=== PATIENT | female | born 1990 | race African-American/Black ===

== ENCOUNTER 2017-12-06 12:28 | Emergency (ER) | payer SELFPAY ==
[2017-12-06 12:36] VITALS: BP 122/76
[2017-12-06] MEDS ORDERED: LIDOCAINE 5% (700 MG) TRANSDERMAL ADH..PATCH TP ONE (13:46)
[2017-12-06] MEDS ORDERED: IBUPROFEN 600 MG TABLET PO ONE (13:47)
[2017-12-06] MEDS ORDERED: ACETAMINOPHEN 325 MG TABLET PO ONE (13:47)
--- NOTE | 2017-12-06 13:48 | ER Document Report ---
ED Headache - General Chief Complaint: Headache >24 hrs old Stated Complaint: HEADACHE Time Seen by Provider: 12/06/17 13:46 TRAVEL OUTSIDE OF THE [place] IN LAST 30 DAYS: No - HPI Patient complains to provider of: Headache Notes: Patient coming in for evaluation of a headache frontal also having neck pain. Patient is a mother to her 2 children in the room. Patient also states having diarrhea which her [id number] was also experiencing. Patient denies any trauma denies any fevers chills nausea vomiting. Patient states she will start having pain in front of her head and then she will start having pain in the back of her neck worse with movement. Patient states continues to increase tension in the back of her neck denies taking any medications for her pain except for Advil a few days prior. - Related Data Allergies/Adverse Reactions: No Known Allergies Allergy (Verified 12/06/17 13:39) Past Medical History - Social History Smoking Status: Current Every Day Smoker Frequency of alcohol use: None Drug Abuse: None Family History: Reviewed & Not Pertinent Patient has suicidal ideation: No Patient has homicidal ideation: No Neurological Medical History: Reports: Hx Migraine Renal/ Medical History: Denies: Hx Peritoneal Dialysis Review of Systems - Review of Systems Constitutional: Other - Headache diarrhea EENT: No symptoms reported Cardiovascular: No symptoms reported Respiratory: No symptoms reported Gastrointestinal: No symptoms reported Genitourinary: No symptoms reported Female Genitourinary: No symptoms reported Musculoskeletal: No symptoms reported Skin: No symptoms reported Hematologic/Lymphatic: No symptoms reported Neurological/Psychological: No symptoms reported -: Yes All other systems reviewed and negative Physical Exam - Vital signs Vitals: Temp Pulse Resp BP Pulse Ox 97.7 F 69 14 122/76 100 12/06/17 12:31 12/06/17 12:31 12/06/17 12:31 12/06/17 12:31 12/06/17 12:31 Interpretation: Normal - General General appearance: Appears well, Alert - HEENT Head: Normocephalic, Atraumatic Eyes: Normal Pupils: PERRL Sinus: Normal Nasal: Normal Neck: Other - Paraspinal tenderness bilaterally no midline tenderness - Respiratory Respiratory status: No respiratory distress Chest status: Nontender Breath sounds: Normal Chest palpation: Normal - Cardiovascular Rhythm: Regular Heart sounds: Normal auscultation Murmur: No - Abdominal Inspection: Normal Distension: No distension Bowel sounds: Normal Tenderness: Nontender Organomegaly: No organomegaly - Back Back: Normal, Nontender - Extremities General upper extremity: Normal inspection, Nontender, Normal color, Normal ROM , Normal temperature General lower extremity: Normal inspection, Nontender, Normal color, Normal ROM , Normal temperature, Normal weight bearing. No: Hilary's sign - Neurological Neuro grossly intact: Yes Cognition: Normal Orientation: AAOx4 Irving Coma Scale Eye Opening: Spontaneous Irving Coma Scale Verbal: Oriented Irving Coma Scale Motor: Obeys Commands Irving Coma Scale Total: 15 Speech: Normal Motor strength normal: LUE, RUE, LLE, RLE Sensory: Normal - Psychological Associated symptoms: Normal affect, Normal mood - Skin Skin Temperature: Warm Skin Moisture: Dry Skin Color: Normal Course - Re-evaluation Re-evalutation: 12/06/17 21:04 The patient presents with headache without signs of NATIONAL SALES REPRESENTATIVE bleed, stroke, infection , or other serious etiology. The patient is neurologically intact. Given the extremely low risk of these diagnoses further testing and evaluation for these possibilities does not appear to be indicated at this time. The patient has been instructed to return if the symptoms worsen or change in any way.. Symptoms are consistent with tension headache recommend Tylenol Motrin along with lidocaine patches. Patient states understanding. Patient is exposed to her young son who also has diarrhea recommend however noted changes to any medications at this time - Vital Signs Vital signs: Temp Pulse Resp BP Pulse Ox 97.7 F 69 14 122/76 100 12/06/17 12:31 12/06/17 12:31 12/06/17 12:31 12/06/17 12:31 12/06/17 12:31 Discharge - Discharge Clinical Impression: Tension headache Diarrhea Qualifiers: Diarrhea type: unspecified type Qualified Code(s): R19.7 - Diarrhea, unspecified Condition: Good Disposition: HOME, SELF-CARE Instructions: Diarrhea, Nonspecific ([facility]), Tension Headache ([facility]) Additional Instructions: Your evaluation today and HPI is consistent with a tension headache. Treatment for tension headache as an anti-inflammatory medication I would recommend taking the Motrin Tylenol combination as prescribed. He may also try the lidocaine patches that are available [id number]. Please be sure drinking plenty water to stay well-hydrated. Return to ER symptoms worsen. Prescriptions: Ibuprofen [Motrin 600 mg Tablet] 600 mg PO Q8HP PRN #21 tablet PRN Reason: Forms: Return to Work
== END 2017-12-06 14:01 | disposition home or self-care (01) ==
LOC: ER 12:28
DX: G44.209 Tension-type headache, unspecified, not intractable (principal); R19.7 Diarrhea, unspecified; F17.200 Nicotine dependence, unspecified, uncomplicated
CPT/HCPCS: 99283

== ENCOUNTER 2017-12-25 02:04 | Emergency (ER) | payer SELFPAY ==
--- NOTE | 2017-12-25 07:58 | ER Document Report ---
ED ENT - General Chief Complaint: Ear Pain Stated Complaint: EAR/JAW PAIN Time Seen by Provider: 12/25/17 07:48 Mode of Arrival: Ambulatory Information source: Patient Notes: Patient is a 27-year-old female comes emergency room with a 5 day onset of bilateral ear pain and jaw pain. Patient states it started in her right ear first and then moved to the left with the left being worse now. Also hurts when she opens up her mouth. She denies any history of TMJ. She denies any other medical problems. She did denies smoking. Patient was here with her son who we saw as well for diaper rash. She also has some sinus congestion runny nose. TRAVEL OUTSIDE OF THE [place] IN LAST 30 DAYS: No - HPI Patient complains to provider of: Ear problem Onset: Last week Onset/Duration: Persistent, Worse Quality of pain: Achy, Sharp Severity: Moderate Pain Level: 3 Context: Recent Illness. denies: Injury, Travel Location of pain: Ears, Face, Jaw, Nose, Throat Associated symptoms: Congestion, Cough, Ear pain, Jaw pain, Runny nose, Sinus pain, Sinus drainage, Swollen glands, Other. denies: Face swelling, Fever, Neck pain Similar symptoms previously: Yes Recently seen / treated by doctor: No - Related Data Allergies/Adverse Reactions: No Known Allergies Allergy (Verified 12/25/17 02:07) Past Medical History - General Information source: Patient - Social History Smoking Status: Never Smoker Cigarette use (# per day): No Chew tobacco use (# tins/day): No Smoking Education Provided: No Frequency of alcohol use: Rare Drug Abuse: None Lives with: Family Family History: Reviewed & Not Pertinent Neurological Medical History: Reports: Hx Migraine Renal/ Medical History: Denies: Hx Peritoneal Dialysis Review of Systems - Review of Systems Constitutional: Malaise. denies: Fever EENT: Ear pain, Nose congestion, Nose discharge, Sinus pressure, Mouth pain Cardiovascular: No symptoms reported Respiratory: No symptoms reported Gastrointestinal: No symptoms reported Genitourinary: No symptoms reported Female Genitourinary: No symptoms reported Musculoskeletal: No symptoms reported Skin: No symptoms reported Hematologic/Lymphatic: No symptoms reported Neurological/Psychological: No symptoms reported -: Yes All other systems reviewed and negative Physical Exam - Vital signs Vitals: Temp Pulse BP Pulse Ox 98.2 F 79 130/86 H 99 12/25/17 03:08 12/25/17 03:08 12/25/17 03:08 12/25/17 03:08 Interpretation: Hypertensive - Notes Notes: Patient is a well-nourished well-developed 27-year-old female who is in mild discomfort appearing state. She just cannot get comfortable. She refuses to touch her ears because of the pain and discomfort. States that her right ear started first and then followed by the left and now the left is worse. She also complains of painful jaw up by the ears. He also has sinus congestion. - General General appearance: Alert - HEENT Head: Normocephalic, Atraumatic Eyes: Normal Conjunctiva: Normal Ears: Pinna tenderness, Tragus tenderness External canal: Erythema, Swollen, Other - Examination of patient's bilateral external canals show them both have moderate amount of erythema with the left being worse than the right. Patient has pain with palpation of the tragus as well as the auricle. The left ear has some moderate swelling although I can still visualize the TMs. The TMs are bulging with air-fluid levels noted. Patient also has noted tenderness at the TMJ area with opening and closing of her mouth. Although there is no crepitus felt on the motion. Tympanic membrane: Bulging. No: Perforation Sinus: Maxillary, Swelling, Tenderness Nasal: Purulent discharge, Swelling Mouth/Lips: Normal Mucous membranes: Moist Pharynx: Erythema, Post nasal drainage. No: Blood in hypopharynx, Exudate, Peritonsillar abscess, Retropharyngeal abscess, Tonsillar hypertrophy, Uvular edema, Potential airway comprom. Neck: Normal, Posterior cervical chain, Supple. No: Anterior cervical chain, Subcutaneous emphysema, Thyroid nodule, Thyromegally - Respiratory Respiratory status: No respiratory distress Chest status: Nontender Breath sounds: Normal Chest palpation: Normal - Cardiovascular Rhythm: Regular Heart sounds: Normal auscultation Murmur: No - Neurological Neuro grossly intact: Yes Cognition: Normal Orientation: AAOx4 Irving Coma Scale Eye Opening: Spontaneous [place] Coma Scale Verbal: Oriented Irving Coma Scale Motor: Obeys Commands [place] Coma Scale Total: 15 Speech: Normal Course - Vital Signs Vital signs: Temp Pulse Resp BP Pulse Ox 97.8 F 65 16 135/82 H 100 12/25/17 07:57 12/25/17 07:57 12/25/17 07:57 12/25/17 07:57 12/25/17 07:57 Discharge - Discharge Clinical Impression: Otitis externa Qualifiers: Otitis externa type: diffuse Chronicity: acute Laterality: bilateral Qualified Code(s): H60.313 - Diffuse otitis externa, bilateral Otitis media Qualifiers: Otitis media type: allergic Chronicity: acute Laterality: bilateral Recurrence : not specified as recurrent Qualified Code(s): H65.113 - Acute and subacute allergic otitis media (mucoid) (sanguinous) (serous), bilateral Condition: Stable Disposition: HOME, SELF-CARE Instructions: Otitis Externa ([facility]), Otitis Media ([facility]), Sinusitis ([facility]) Additional Instructions: Home and use the drops as directed. Try to keep them as dry as possible. You might consider getting some swimming earplugs to put in your ears when he take a shower. Take the medications as prescribed. Return to ER if you have any concerns or problems. Prescriptions: Cyclobenzaprine HCl [Flexeril 10 mg Tablet] 10 mg PO TIDP PRN #10 tab PRN Reason: Neomy Sulf/Polymyx B Sulf/Hc [Cortisporin Otic Susp 10 ml] 4 drop OT QID #1 bottle Pseudoephedrine HCl [Sudafed 12 Hour] 120 mg PO BID #20 tablet.er
[2017-12-25 08:12] VITALS: BP 135/82
== END 2017-12-25 08:11 | disposition home or self-care (01) ==
LOC: ER 02:04
DX: H60.313 Diffuse otitis externa, bilateral (principal); H65.113 Acute and subacute allergic otitis media (mucoid) (sanguinous) (serous), bilateral; R68.84 Jaw pain
CPT/HCPCS: 99282

== ENCOUNTER 2019-04-04 00:06 | Outpatient (CLI) | payer MEDICAID ==
[2019-04-04 00:41] LABS: APPEARANCE,URINE CLEAR; BILIRUBIN,URINE NEGATIVE (NEGATIVE); COLOR,URINE YELLOW; GLUCOSE, URINE NEGATIVE (NEGATIVE); KETONES,URINE NEGATIVE (NEGATIVE); LEUKOCYTE ESTERASE,URINE NEGATIVE (NEGATIVE); NITRITE,URINE NEGATIVE (NEGATIVE); PROTEIN,URINE NEGATIVE (NEGATIVE); URINE SPECIFIC GRAVITY 1.023
[2019-04-04 00:59] LABS: URINE AMPHETAMINES SCREEN NEGATIVE; URINE BARBITURATES SCREEN NEGATIVE; URINE BENZODIAZEPINES SCREEN NEGATIVE; URINE COCAINE SCREEN NEGATIVE; URINE MARIJUANA (THC) SCREEN NEGATIVE; URINE METHADONE SCREEN NEGATIVE; URINE PHENCYCLIDINE SCREEN NEGATIVE
[2019-04-04] MEDS ORDERED: ACETAMINOPHEN 325 MG TABLET ONE (01:31)
[2019-04-04] MEDS ORDERED: ACETAMINOPHEN 325 MG TABLET PO ONE (02:00)
--- NOTE | 2019-04-04 02:07 | Non Stress Test Report ---
Non Stress Test Datetime Report Generated by CPN: 04/04/2019 02:07 DEMOGRAPHIC EGA NST: 40.4 INDICATION Indication for Study (NST) Other: gestational age >32 weeks VITAL SIGNS Temperature - NST: 98.7 Pulse - NST: 64 RESP - NST: 16 NBPSYS NST: 137 NBPDIA NST: 99 MONITORING Monitor Explained: Monitor Explained; Test Explained; Patient Verbalized Understanding Time on Monitor: 04/04/2019 00:43 Time off Monitor: 04/04/2019 01:17 NST Duration: 34 NST INTERVENTIONS NST Interventions: None Physician Notified NST: Dr. Roche BABY A: [id number] BABY A Movement : Present Contraction Frequency : irregular with irritability FHR Baseline : 135 Accelerations : 15X15 Decelerations : None Variability : Moderate 6-25bpm NST Review: Meets Criteria for Reactive NST NST Review and Verified By : Minesh Cohen RN NST Results: Reactive NST REPORT Report Trigger: Send Report
== END 2019-04-04 01:56 | disposition home or self-care (01) ==
LOC: LC 00:06
PROVIDERS: ATTEND Obstetrics & Gynecology
PROC: 4A1HXCZ Monitoring of Products of Conception, Cardiac Rate, External Approach (ICD-10-PCS; principal; 2019-04-04)
DX: O47.1 False labor at or after 37 completed weeks of gestation (principal); O99.283 Endocrine, nutritional and metabolic diseases complicating pregnancy, third trimester; E86.0 Dehydration; O48.0 Post-term pregnancy; Z3A.40 40 weeks gestation of pregnancy
CPT/HCPCS: 59025; 81005; 80307; J3490

== ENCOUNTER 2019-04-08 06:46 | Inpatient (IN) | payer MEDICAID ==
[2019-04-08] MEDS ORDERED: OXYTOCIN/NORMAL SALINE 20 UNIT/1,000 ML RTUINJ IV PRN ×2 (07:12→17:36)
[2019-04-08 07:45] LABS: ABSOLUTE LYMPHOCYTES (AUTO) 1.3 10^3/uL (0.5-4.7); ABSOLUTE MONOCYTES (AUTO) 0.4 10^3/uL (0.1-1.4); ABSOLUTE NEUT (AUTO) 3.6 10^3/uL (1.7-8.2); BASOPHILS % (AUTO) 0.4 % (0-2); EOSINOPHILS % (AUTO) 0.5 % (0-6); HEMATOCRIT 29.4 % (36.0-47.0); HEMOGLOBIN 9.8 g/dL (12.0-15.5); LYMPHOCYTES % (AUTO) 24.2 % (13-45); MEAN CORPUSCULAR HEMOGLOBIN 26.7 pg (27.0-33.4); MEAN CORPUSCULAR HGB CONC 33.3 g/dL (32.0-36.0); MEAN CORPUSCULAR VOLUME 80 fl (80-97); MONOCYTES % (AUTO) 7.6 % (3-13); PLATELET COUNT 168 10^3/uL (150-450); RED BLOOD COUNT 3.67 10^6/uL (3.72-5.28); RED CELL DISTRIBUTION WIDTH 18.3 % (11.5-14.0); SEGMENTED NEUTROPHILS % (AUTO) 67.3 % (42-78); TOTAL CELLS COUNTED % (AUTO) 100 %; WHITE BLOOD COUNT 5.4 10^3/uL (4.0-10.5)
[2019-04-08] MEDS ORDERED: RINGERS SOLUTION,LACTATED 1,000 ML IV ONE (08:00)
[2019-04-08] MEDS ORDERED: OXYTOCIN/NORMAL SALINE 20 UNIT/1,000 ML RTUINJ ONE ×2 (08:06→17:36)
[2019-04-08] MEDS ORDERED: LIDOCAINE 1% INJ-PF (10 MG/ML) 30 ML SDV ONE (08:06)
[2019-04-08] MEDS ORDERED: OXYTOCIN 10 UNIT/ML VIAL ONE (08:06)
[2019-04-08] MEDS ORDERED: MISOPROSTOL 0.2 MG TABLET ONE (08:06)
[2019-04-08] MEDS: RINGERS SOLUTION,LACTATED 1,000 ML IV PRN ×2 (08:17→15:15)
[2019-04-08 08:48] LABS: APPEARANCE,URINE CLEAR; BILIRUBIN,URINE NEGATIVE (NEGATIVE); COLOR,URINE YELLOW; GLUCOSE, URINE NEGATIVE (NEGATIVE); KETONES,URINE NEGATIVE (NEGATIVE); LEUKOCYTE ESTERASE,URINE NEGATIVE (NEGATIVE); NITRITE,URINE NEGATIVE (NEGATIVE); PROTEIN,URINE NEGATIVE (NEGATIVE); URINE SPECIFIC GRAVITY 1.013; UROBILINOGEN,URINE NEGATIVE mg/dL (<2.0)
--- NOTE | 2019-04-08 08:59 | Admission Physical ---
Datetime Report Generated by CPN: 04/08/2019 08:58 CURRENT ADMISSION Chief Complaint: Scheduled Induction of Labor Indication for Induction: Post Dates Admit Impression : No Active Labor Admit Plan: Initiate Labor Induction Protocol Admit Plan- Other: Hx HSV Hx Von Willibrands Dz Anemia Abn pap ASCUS + HR HPV Gap in PNC ALLERGIES Medication Allergies: No Medication Allergies: aspirin/MO/bleeding (04/04/2019) Latex: No Latex Allergies Food Allergies: n/a Environmental Allergies: n/a OBSTETRICAL HISTORY EDC: 03/31/2019 00:00 : 4 Para: 3 Term: 3 : 0 SAB: 0 IAB: 0 Ectopic: 0 Livin Cesareans: 0 VBACs: 0 Multiple Births: 0 Gestational Diabetes: No Rh Sensitization: No Incompetent Cervix: No RAMESH: No Infertility: No ART Treatment: No Uterine Anomaly: No IUGR: No Hx Previous C/S: No Macrosomia: No Hx Loss/Stillborn: No PIH: No Hx : No Placenta Previa/Abruption: No Depression/PP Depression: Yes PTL/PROM: No Post Hemorrhage: No Current Procedures: Ultrasound; NST Obstetrical History Comments: g-2012, 37 weeks, , male, 9 hours, lb 4oz, no complications g2-2015, 42 weeks, ,male, 23 hours, 5lb 9oz, no complications g3-2016, 40 weeks, , 6hr, male, 6lb 3oz, no complications g4-current SEE RECORDS Alcohol: No Marijuana : No Cocaine: No Other Illicit Drugs: No Cigarettes: Former Smoker. [id number] MEDICAL HISTORY Diabetes: No Blood Transfusion: No Pulmonary Disease (Asthma, TB): No Breast Disease: No Hypertension: No Director Of Tax Services Surgery: No Heart Disease: No Hosp/Surgery: Yes Autoimmune Disorder: No Anesthetic Complications: No Kidney Disease: No Abnormal Pap Smear: Yes Neuro/Epilepsy: No Psychiatric Disorders: No Other Medical Diseases: Yes Hepatitis/Liver Disease: No Significant Family History: No Varicosities/Phlebitis: No Trauma/Violence : No Thyroid Dysfunction: No Medical History Comments: HSV, Von Willebrands dx as a child, childbirth x 3, anemia, abn pap, HPV INFECTIOUS HISTORY Gonorrhea: No Genital Herpes: Yes Chlamydia: No Tuberculosis: No Syphilis: No Hepatitis: No HIV/AIDS Exposure: No Rash or Viral Illness: No HPV: Yes PHYSICAL EXAM General: Normal HEENT: Deferred Neurologic: Normal Thyroid: Deferred Heart: Normal Lungs: Normal Breast: Deferred Back: Deferred Abdomen: Normal Genitourinary Exam: Normal Extremities: Normal DTRs: Deferred Pelvic Type: Adequate Physical Exam Comments: no signs sx of HSV Vital Signs: Reviewed VAGINAL EXAM Dilatation: 2 Effacement: 50 Station: -3 MEMBRANES Membranes: Intact FETUS A EGA: 41.1 Monitoring: External US FHR- Baseline: 130 Variability: Moderate 6-25bpm Accelerations: 15X15 Decelerations: None FHR Category: Category I Presentation: Vertex Admit Comment: Admit for IOL GBS neg Plan per Dr. [place], Otto cath placed, pitocin started at 2mu PLANS FOR LABOR AND DELIVERY Labor and Delivery: None Pain Management: Natural Feeding Preference: Breast Benefit of Breast Feed Discussed: Yes Circumcision: N/A INFORMED CONSENT Assignment: Elizabeth Colorado MD Signature: with User ID: [email or web address] : with User ID: [email or web address]
[2019-04-08 09:18] LABS: URINE AMPHETAMINES SCREEN NEGATIVE; URINE BARBITURATES SCREEN NEGATIVE; URINE BENZODIAZEPINES SCREEN NEGATIVE; URINE COCAINE SCREEN NEGATIVE; URINE MARIJUANA (THC) SCREEN NEGATIVE; URINE METHADONE SCREEN NEGATIVE; URINE PHENCYCLIDINE SCREEN NEGATIVE
[2019-04-08 11:38] LABS: HEMATOCRIT 29.7 % (36.0-47.0); HEMOGLOBIN 9.9 g/dL (12.0-15.5); MEAN CORPUSCULAR HEMOGLOBIN 26.6 pg (27.0-33.4); MEAN CORPUSCULAR HGB CONC 33.3 g/dL (32.0-36.0); MEAN CORPUSCULAR VOLUME 80 fl (80-97); PLATELET COUNT 173 10^3/uL (150-450); RED BLOOD COUNT 3.72 10^6/uL (3.72-5.28); RED CELL DISTRIBUTION WIDTH 18.9 % (11.5-14.0)
[2019-04-08 11:40] LABS: UR PRO/CREAT RATIO RESULT 0.1 mg/mg (0.0-0.2); URINE CREATININE 100.1 mg/dL (16-327); URINE PROTEIN 8.8 mg/dL (<12)
[2019-04-08 11:55] LABS: ALBUMIN 3.2 g/dL (3.5-5.0); ALKALINE PHOSPHATASE 145 U/L (38-126); ANION GAP 6 (5-19); ASPARTATE AMINO TRANSFERASE 15 U/L (14-36); BILIRUBIN,DIRECT 0.1 mg/dL (0.0-0.4); BILIRUBIN,TOTAL 0.4 mg/dL (0.2-1.3); BLOOD UREA NITROGEN 5 mg/dL (7-20); CALCIUM 8.4 mg/dL (8.4-10.2); CARBON DIOXIDE 20 mmol/L (22-30); CHLORIDE 110 mmol/L (98-107); GLUCOSE 79 mg/dL (75-110); POTASSIUM 3.9 mmol/L (3.6-5.0); TOTAL PROTEIN 6.5 g/dL (6.3-8.2); URIC ACID 3.7 mg/dL (2.5-6.2)
[2019-04-08] MEDS ORDERED: DIPHENHYDRAMINE HCL 25 MG CAPSULE PO PRN (17:36)
[2019-04-08] MEDS ORDERED: DIPH/PERTUSS(ACELL)/TETANUS VAC/PF 0.5 ML SYR (>=10YO) IM PRN (17:36)
[2019-04-08] MEDS ORDERED: DIBUCAINE 1% OINTMENT 28 GM TP PRN (17:36)
[2019-04-08] MEDS ORDERED: PROMETHAZINE HCL 25 MG TABLET PO PRN (17:36)
[2019-04-08] MEDS ORDERED: PROMETHAZINE HCL INJ 25 MG/1 ML VIAL IV PRN (17:36)
[2019-04-08] MEDS ORDERED: ACETAMINOPHEN WITH CODEINE #3 TABLET PO PRN (17:36)
[2019-04-08] MEDS ORDERED: BENZOCAINE/MENTHOL AEROSOL SPRAY 56 ML TOP PRN (17:36)
[2019-04-08] MEDS ORDERED: MAGNESIUM HYDROXIDE SUSP 30 ML UDCUP PO PRN (17:36)
[2019-04-08] MEDS ORDERED: GLYCERIN/WITCH HAZEL LEAF 1 EACH MED..WIPE TP PRN (17:36)
[2019-04-08] MEDS ORDERED: PSEUDOEPHEDRINE HCL 30 MG TABLET PO PRN (17:36)
[2019-04-08] MEDS ORDERED: ACETAMINOPHEN 325 MG TABLET PO PRN (17:36)
[2019-04-08] MEDS ORDERED: MISOPROSTOL 0.2 MG TABLET PR PRN (17:36)
[2019-04-08] MEDS ORDERED: MEASLES,MUMPS&RUBELLA VACC/PF 0.5 ML VIAL SUBCUT PRN (17:36)
[2019-04-08] MEDS ORDERED: ZOLPIDEM TARTRATE 5 MG TABLET PO PRN (17:36)
[2019-04-08] MEDS ORDERED: PROMETHAZINE HCL 25 MG SUPP.RECT PR PRN (17:36)
[2019-04-08] MEDS ORDERED: NA PHOS,M-B/NA PHOS,DI-BA (ADULT) 133 ML ENEMA PR PRN (17:36)
[2019-04-08] MEDS ORDERED: ACETAMINOPHEN WITH CODEINE #3 TABLET ONE (19:29)
--- NOTE | 2019-04-08 19:37 | Delivery Summary ---
Del Sum A-C Datetime Report Generated by CPN: 04/08/2019 19:37 DELIVERY PERSONNEL DELIVERY PERSONNEL: [id number] Delivery Doctor:: Elizabeth [place] MD Labor and Delivery Nurse:: Dennise Machado RN Labor and Delivery Nurse:: Carmelita Talavera RN Nursery Nurse:: liane mehta rn Floor Sweeper/AUDIT LEAD: [facility] Floor Sweeper/AUDIT LEAD: [facility] Additional Personnel: : Anayeli HENRY RN MATERNAL INFORMATION Delivery Anesthesia: None Medications After Delivery: Pitocin Bolus-Please Comment; Pitocin Drip 20 Units/1000ml NSS; Cytotec 1000mcg Per Rectum/Vagina Estimated Blood Loss (ml): 500 Delivery QBL Comment: Unable to perform due to precipitous delivery without draping Maternal Complications: Other Complication Details: PRECIPITOUS DELIVERY Provider Comments: VFI delivered in REN presentation with tight nuchal cord delivered through. Shoulders and body delivered without difficulty. Cord doubly clamped and cut. Infant to maternal abdomen for NRP. Placenta delivered intact spontaneously. FF at U then mild atony resolved with pitocin and CO cytotec. Unable to perform QBL. EBL 500ml. no perineal lacerations need repair. Mother and baby stable upon provider leaving the room LABOR SUMMARY EDC: 03/31/2019 00:00 No. Babies in Womb: 1 Attempted: No Labor Anesthesia: None LABOR INFORMATION Reason for Induction: Post Dates Onset of Labor: 04/08/2019 11:30 Complete Dilatation: 04/08/2019 17:15 Cervical Ripening Agents: [place] Balloon Oxytocin: Induction Group B Beta Strep: negative Antibiotics # of Doses: 0 Steroids Given: None Reason Steroids Not Administered: Not Applicable MEMBRANES Membranes Rupture Method: Artificial Rupture of Membranes: 04/08/2019 13:50 Length of Rupture (hr): 3.42 Amniotic Fluid Color: Clear Amniotic Fluid Amount: Small Amniotic Fluid Odor: None STAGES OF LABOR Stage 1 hr: 5 Stage 1 min: 45 Stage 2 hr: 0 Stage 2 min: 0 Stage 3 hr: 0 Stage 3 min: 3 Total Time in Labor hr: 5 Total Time in Labor min: 48 VAGINAL DELIVERY Episiotomy: None Laceration #1: None Laceration Extension #1: N/A Other Laceration: SUPERFICIAL ABRASIONS Laceration Repair: Not Applicable Sponge Count Correct: Yes Sharps Count Correct: Yes BABY A INFORMATION Delivery Date/Time: 04/08/2019 17:15 Method of Delivery: Vaginal Born in Route : No : N/A Forceps: N/A Vacuum Extraction: N/A Shoulder Dystocia : No PRESENTATION/POSITION BABY A Presentation: Cephalic Cephalic Presentation: Vertex Vertex Position: Right Occipital Anterior Breech Presentation: N/A PLACENTA INFORMATION BABY A Placenta Delivery Time : 04/08/2019 17:18 Placenta Method of Delivery: Spontaneous Placenta Status: Delivered SCORES BABY A Heart Rate 1 min: >100 bpm Resp Effort 1 min: Slow, Irregular Reflex Irritability 1 min: Cough or Sneeze or Pulls Away Muscle Tone 1 min: Active Motion Color 1 min: Blue/Pale Resuscitation Effort 1 min: Tactile Stimulation SCORE 1 MIN: 7 Heart Rate 5 min: >100 bpm Resp Effort 5 min: Good Cry Reflex Irritability 5 min: Cough or Sneeze or Pulls Away Muscle Tone 5 min: Active Motion Color 5 min: Body [place], Extremities Blue Resuscitation Effort 5 min: Tactile Stimulation SCORE 5 MIN: 9 INFORMATION BABY A Gestational Age at Delivery: 41.1 Gestational Status: Late Term- 41- 41.6 Weeks Infant Outcome : Liveborn Infant Condition : Stable Sex: Female IDENTIFICATION BABY A Verification Date/Time: 04/08/2019 17:47 ID Band Number: [id number] Mother's Name Verified: Yes Infant RN Verifying : LISETTE MACHADO, RN Additional Verifying Personnel: Liane MEHTA, WEIGHT/LENGTH BABY A Infant Birthweight (gm): 3380 Infant Weight (lb): 7 Infant Weight (oz): 7 Length (in): 20.00 Length (cm): 50.80 CORD INFORMATION BABY A No. Cord Vessels: 3 Nuchal Cord : Around Neck x1, Tight Cord Blood Taken: Yes-For Eval (Mom's Blood Type - or O+) Infant Suction: None ASSESSMENT BABY A Infant Complications: Other Physical Findings at Delivery: Within Normal Limits Infant Respirations: Appears Normal Skin to Skin: Yes Cooking Teacher/ALS Called : No Care By: LISETTE MACHADO RN Transferred To: Remains with Mother BABY B INFORMATION : N/A SIGNATURES Signature: with User ID: [email or web address] : Luan was personally available for consultation and serving as supervising physician for the MLP.
[2019-04-08] MEDS: FAMOTIDINE 20 MG TABLET PO SCH (22:20)
[2019-04-08] MEDS: ACETAMINOPHEN WITH CODEINE #3 TABLET PO PRN (23:56)
[2019-04-09] MEDS: ACETAMINOPHEN WITH CODEINE #3 TABLET PO PRN ×3 (05:26→22:42)
[2019-04-09 06:53] LABS: HEMATOCRIT 26.4 % (36.0-47.0); HEMOGLOBIN 8.9 g/dL (12.0-15.5); MEAN CORPUSCULAR HGB CONC 33.8 g/dL (32.0-36.0); MEAN CORPUSCULAR VOLUME 80 fl (80-97); PLATELET COUNT 135 10^3/uL (150-450); RED CELL DISTRIBUTION WIDTH 19.1 % (11.5-14.0); WHITE BLOOD COUNT 7.4 10^3/uL (4.0-10.5)
[2019-04-09 09:22] LABS: HSV-I IGG AB <0.91 index (0.00-0.90)
[2019-04-09] MEDS: FAMOTIDINE 20 MG TABLET PO SCH ×2 (09:46→22:43)
[2019-04-09] MEDS: DOCUSATE SODIUM 100 MG CAPSULE PO SCH ×3 (09:46→19:18)
[2019-04-09] MEDS: FERROUS SULFATE 325 MG TABLET PO SCH ×3 (09:46→19:18)
[2019-04-09] MEDS: PRENATAL VITAMIN W DHA CAPSULE PO SCH (09:47)
[2019-04-09] MEDS ORDERED: SENNOSIDES/DOCUSATE 8.6-50 MG 1 EACH TABLET PO SCH (10:00)
--- NOTE | 2019-04-09 11:31 | PDOC PROGRESS REPORT ---
Subjective-OB Progress Note for:: 04/09/19 Subjective: 29yo G4 now P4 s/p ppd1. Pt. ambulating, voiding and passing gas without difficulty. Reports pain well controlled with medication. No concerns today Physical Exam (OB) Vital Signs: Temp Pulse Resp BP Pulse Ox 97.5 F 49 L 16 118/73 100 04/09/19 07:51 04/09/19 07:51 04/09/19 07:51 04/09/19 07:51 04/09/19 07:51 Intake & Output 04/08/19 04/09/19 04/10/19 06:59 06:59 06:59 Intake Total 1871 480 Balance 1871 480 Weight 95.2 kg - General General Appearance: Appears well In distress: None - PIH/Pre-Eclampsia Headache: Absent Epigastric Pain: No Visual Changes: No - Episiotomy/Laceration Site Condition: N/A Episiotomy/Laceration Note: superficial abrasions, hemostatic - Lochia Lochia Amount: Small 10-25 ml Lochia Color: Rubra/Red - Abdomen Description: Soft, Round Hernia Present: No Fundal Description: Firm, Midline Fundal Height: u/u - u/2 - Respiratory Respiratory Status: No respiratory distress - Extremities Upper extremity: Normal inspection Lower extremities: Normal inspection - Neurological Cognition: Normal Orientation: AAOx4 - Psychological Associated symptoms: Normal affect, Normal mood Objective-Diagnostic Laboratory: 04/09/19 06:36 04/08/19 11:28 04/08/19 04/08/19 04/09/19 11:28 11:28 06:36 WBC 5.0 7.4 RBC 3.72 3.30 L Hgb 9.9 L 8.9 L Hct 29.7 L 26.4 L MCV 80 80 MCH 26.6 L 27.0 MCHC 33.3 33.8 RDW 18.9 H 19.1 H Plt Count 173 135 L Sodium 136.0 L Potassium 3.9 Chloride 110 H Carbon Dioxide 20 L Anion Gap 6 BUN 5 L Creatinine 0.52 Est GFR ( Amer) > 60 Glucose 79 Uric Acid 3.7 Calcium 8.4 Total Bilirubin 0.4 AST 15 Alkaline Phosphatase 145 H Total Protein 6.5 Albumin 3.2 L Assessment and Plan(PN) - Assessment and Plan (1) Precipitous delivery, delivered (current hospitalization) Is this a current diagnosis for this admission?: Yes Plan: Routine pp care (2) Von Willebrand disease Is this a current diagnosis for this admission?: Yes Plan: continue to monitor, repeat cbc in the am (3) Iron deficiency anemia during Is this a current diagnosis for this admission?: Yes Plan: increase dietary iron and FeSO4 BID (4) History of herpes genitalis Is this a current diagnosis for this admission?: Yes Plan: no current outbreak, plan as discussed on admission (5) Encounter for planned induction of labor Is this a current diagnosis for this admission?: Yes Plan: Routine pp care,delivered - Time Spent with Patient Time with patient: Less than 15 minutes Medications reviewed and adjusted accordingly: Yes - Disposition Anticipated Discharge: Home Within: within 24 hours
[2019-04-10 06:59] LABS: HEMATOCRIT 28.6 % (36.0-47.0); HEMOGLOBIN 9.6 g/dL (12.0-15.5); MEAN CORPUSCULAR HEMOGLOBIN 27.2 pg (27.0-33.4); MEAN CORPUSCULAR HGB CONC 33.6 g/dL (32.0-36.0); MEAN CORPUSCULAR VOLUME 81 fl (80-97); PLATELET COUNT 182 10^3/uL (150-450); RED BLOOD COUNT 3.54 10^6/uL (3.72-5.28); RED CELL DISTRIBUTION WIDTH 20.2 % (11.5-14.0); WHITE BLOOD COUNT 5.4 10^3/uL (4.0-10.5)
[2019-04-10 09:18] VITALS: BP 130/78
[2019-04-10] MEDS: ACETAMINOPHEN WITH CODEINE #3 TABLET PO PRN ×2 (09:19→15:15)
[2019-04-10] MEDS: DOCUSATE SODIUM 100 MG CAPSULE PO SCH (09:20)
[2019-04-10] MEDS: PRENATAL VITAMIN W DHA CAPSULE PO SCH (09:20)
[2019-04-10] MEDS: FERROUS SULFATE 325 MG TABLET PO SCH (09:20)
[2019-04-10] MEDS: FAMOTIDINE 20 MG TABLET PO SCH (09:21)
--- NOTE | 2019-04-10 09:21 | PDOC PROGRESS REPORT ---
Subjective-OB Progress Note for:: 04/10/19 Subjective: Doing well, no c/o bleeding scant, Physical Exam (OB) Vital Signs: Temp Pulse Resp BP Pulse Ox 97.8 F 65 16 130/78 H 99 04/10/19 07:29 04/10/19 07:29 04/10/19 07:29 04/10/19 07:29 04/10/19 07:29 Intake & Output 04/09/19 04/10/19 04/11/19 06:59 06:59 06:59 Intake Total 1871 2480 500 Balance 1871 2480 500 - PIH/Pre-Eclampsia Headache: Absent Epigastric Pain: No Visual Changes: No - Lochia Lochia Amount: Small 10-25 ml Lochia Color: Rubra/Red - Abdomen Description: Soft, Round Hernia Present: No Fundal Description: Firm, Midline Fundal Height: u/u - u/2 Objective-Diagnostic Laboratory: 04/10/19 06:27 04/08/19 11:28 04/10/19 06:27 WBC 5.4 RBC 3.54 L Hgb 9.6 L Hct 28.6 L MCV 81 MCH 27.2 MCHC 33.6 RDW 20.2 H Plt Count 182 Assessment and Plan(PN) - Assessment and Plan (1) Precipitous delivery, delivered (current hospitalization) Is this a current diagnosis for this admission?: Yes (2) Von Willebrand disease Is this a current diagnosis for this admission?: Yes (3) Iron deficiency anemia during Is this a current diagnosis for this admission?: Yes (4) History of herpes genitalis Is this a current diagnosis for this admission?: Yes (5) Encounter for planned induction of labor Is this a current diagnosis for this admission?: Yes - Time Spent with Patient Time with patient: Less than 15 minutes Medications reviewed and adjusted accordingly: Yes - Disposition Anticipated Discharge: Home Within: within 24 hours
--- NOTE | 2019-04-10 09:26 | PDOC DISCHARGE SUMMARY ---
Impression - Admit/DC Date/PCP Admission Date/Primary Care Provider: 04/08/19 06:46 BERTHA TOURE MD Discharge Date: 04/10/19 - Discharge Diagnosis (1) Precipitous delivery, delivered (current hospitalization) Is this a current diagnosis for this admission?: Yes (2) Von Willebrand disease Is this a current diagnosis for this admission?: Yes (3) Iron deficiency anemia during Is this a current diagnosis for this admission?: Yes (4) History of herpes genitalis Is this a current diagnosis for this admission?: Yes (5) Encounter for planned induction of labor Is this a current diagnosis for this admission?: Yes - Additional Information Discharge Diet: As Tolerated, Regular Discharge Activity: Activity As Tolerated, No Lifting/Push/Pulling, Pelvic Rest Referrals: BERTHA TOURE MD [Primary Care Provider] - ([facility] 4 weeks) Prescriptions: Acetaminophen with Codeine [Tylenol #3 Tablet] 1 each PO Q4HP PRN #10 tablet PRN Reason: Home Medications: Ferrous Sulfate [Feosol 325 mg Tablet] 325 mg PO DAILY 04/04/19 Vits96/Iron Fum/Folic [ Tablet] 1 tab PO DAILY 04/04/19 Acetaminophen with Codeine [Tylenol #3 Tablet] 1 each PO Q4HP PRN #10 tablet 04/10/19 HPI Gestational Age: 41.1 Reason(s) for Admission: Onset of Labor Procedures: NST, Ultrasound Intrapartum Procedure(s): Spontaneous Vaginal Delivery - female. 10/09, wt 7-7, home with mom Hospital Course Hospital Course: routine Results Laboratory Results: WBC 5.4 10^3/uL (4.0-10.5) 04/10/19 06:27 RBC 3.54 10^6/uL (3.72-5.28) L 04/10/19 06:27 Hgb 9.6 g/dL (12.0-15.5) L 04/10/19 06:27 Hct 28.6 % (36.0-47.0) L 04/10/19 06:27 MCV 81 fl (80-97) 04/10/19 06:27 MCH 27.2 pg (27.0-33.4) 04/10/19 06:27 MCHC 33.6 g/dL (32.0-36.0) 04/10/19 06:27 RDW 20.2 % (11.5-14.0) H 04/10/19 06:27 Plt Count 182 10^3/uL (150-450) 04/10/19 06:27 Lymph % (Auto) 24.2 % (13-45) 04/08/19 07:36 [place] % (Auto) 7.6 % (3-13) 04/08/19 07:36 Eos % (Auto) 0.5 % (0-6) 04/08/19 07:36 Baso % (Auto) 0.4 % (0-2) 04/08/19 07:36 Absolute Neuts (auto) 3.6 10^3/uL (1.7-8.2) 04/08/19 07:36 Absolute Lymphs (auto) 1.3 10^3/uL (0.5-4.7) 04/08/19 07:36 Absolute Monos (auto) 0.4 10^3/uL (0.1-1.4) 04/08/19 07:36 Absolute Eos (auto) 0.0 10^3/uL (0.0-0.6) 04/08/19 07:36 Absolute Basos (auto) 0.0 10^3/uL (0.0-0.2) 04/08/19 07:36 Seg Neutrophils % 67.3 % (42-78) 04/08/19 07:36 Sodium 136.0 mmol/L (137-145) L 04/08/19 11:28 Potassium 3.9 mmol/L (3.6-5.0) 04/08/19 11:28 Chloride 110 mmol/L (98-107) H 04/08/19 11:28 Carbon Dioxide 20 mmol/L (22-30) L 04/08/19 11:28 Anion Gap 6 (5-19) 04/08/19 11:28 BUN 5 mg/dL (7-20) L 04/08/19 11:28 Creatinine 0.52 mg/dL (0.52-1.25) 04/08/19 11:28 Est GFR ( Amer) > 60 (>60) 04/08/19 11:28 Est GFR (MDRD) Non-Af > 60 (>60) 04/08/19 11:28 Glucose 79 mg/dL (75-110) 04/08/19 11:28 Uric Acid 3.7 mg/dL (2.5-6.2) 04/08/19 11:28 Calcium 8.4 mg/dL (8.4-10.2) 04/08/19 11:28 Total Bilirubin 0.4 mg/dL (0.2-1.3) 04/08/19 11:28 Direct Bilirubin 0.1 mg/dL (0.0-0.4) 04/08/19 11:28 Neonat Total Bilirubin Not Reportable 04/08/19 11:28 Neonat Direct Bilirubin Not Reportable 04/08/19 11:28 Neonat Indirect Bili Not Reportable 04/08/19 11:28 AST 15 U/L (14-36) 04/08/19 11:28 ALT 7 U/L (<35) 04/08/19 11:28 Alkaline Phosphatase 145 U/L (38-126) H 04/08/19 11:28 Lactate Dehydrogenase 106 U/L (120-246) L 04/08/19 11:28 Total Protein 6.5 g/dL (6.3-8.2) 04/08/19 11:28 Albumin 3.2 g/dL (3.5-5.0) L 04/08/19 11:28 Urine Color YELLOW 04/08/19 07:30 Urine Appearance CLEAR 04/08/19 07:30 Urine pH 6.0 (5.0-9.0) 04/08/19 07:30 Ur Specific [place] 1.013 04/08/19 07:30 Urine Protein NEGATIVE mg/dL (NEGATIVE) 04/08/19 07:30 Urine Glucose (UA) NEGATIVE mg/dL (NEGATIVE) 04/08/19 07:30 Urine Ketones NEGATIVE mg/dL (NEGATIVE) 04/08/19 07:30 Urine Blood NEGATIVE (NEGATIVE) 04/08/19 07:30 Urine Nitrite NEGATIVE (NEGATIVE) 04/08/19 07:30 Urine Bilirubin NEGATIVE (NEGATIVE) 04/08/19 07:30 Urine Urobilinogen NEGATIVE mg/dL (<2.0) 04/08/19 07:30 Ur Leukocyte Esterase NEGATIVE (NEGATIVE) 04/08/19 07:30 Urine WBC (Auto) 0 /HPF 04/08/19 07:30 Urine RBC (Auto) 0 /HPF 04/08/19 07:30 Squamous Epi Cells Auto <1 /HPF 04/08/19 07:30 Urine Mucus (Auto) OCC /LPF 04/08/19 07:30 Urine Creatinine 100.1 mg/dL (16-327) 04/08/19 07:30 Protein/Creatinin Ratio 0.1 mg/mg (0.0-0.2) 04/08/19 07:30 Urine Total Protein 8.8 mg/dL (<12) 04/08/19 07:30 Urine Ascorbic Acid NEGATIVE (NEGATIVE) 04/08/19 07:30 Urine Opiates Screen NEGATIVE 04/08/19 07:30 Urine Methadone Screen NEGATIVE 04/08/19 07:30 Ur Barbiturates Screen NEGATIVE 04/08/19 07:30 Ur Phencyclidine Scrn NEGATIVE 04/08/19 07:30 Ur Amphetamines Screen NEGATIVE 04/08/19 07:30 U Benzodiazepines Scrn NEGATIVE 04/08/19 07:30 Urine Cocaine Screen NEGATIVE 04/08/19 07:30 U Marijuana (THC) Screen NEGATIVE 04/08/19 07:30 RPR NONREACTIVE (NONREACTIVE) 04/08/19 07:36 HSV I&II IgM Ab <0.91 RATIO (0.00-0.90) 04/08/19 07:36 HSV I IgG Ab <0.91 index (0.00-0.90) 04/08/19 07:36 HSV II Specific Ab 18.60 index (0.00-0.90) H 04/08/19 07:36 Blood Type O POSITIVE 04/08/19 07:36 Antibody Screen NEGATIVE 04/08/19 07:36 Plan Health Concerns: bleeding Plan of Treatment: take iron, rev S&S to report Goals: no complications Time Spent: Less than 30 Minutes
== END 2019-04-10 16:45 | disposition home or self-care (01) | DRG 806 ==
LOC: LR 06:46 → 2S 20:00
PROVIDERS: ADMIT Obstetrics & Gynecology; ATTEND Obstetrics & Gynecology
PROC: 10E0XZZ Delivery of Products of Conception, External Approach (ICD-10-PCS; principal; 2019-04-08)
PROC: 10907ZC Drainage of Amniotic Fluid, Therapeutic from Products of Conception, Via Natural or Artificial Opening (ICD-10-PCS; 2019-04-08)
DX: O48.0 Post-term pregnancy (principal); O99.12 Other diseases of the blood and blood-forming organs and certain disorders involving the immune mechanism complicating childbirth; O98.32 Other infections with a predominantly sexual mode of transmission complicating childbirth; D68.0 Von Willebrand disease; Z37.0 Single live birth; O62.3 Precipitate labor; A60.00 Herpesviral infection of urogenital system, unspecified; Z3A.41 41 weeks gestation of pregnancy; Z87.891 Personal history of nicotine dependence; O69.1XX0 Labor and delivery complicated by cord around neck, with compression, not applicable or unspecified; O70.0 First degree perineal laceration during delivery; O99.02 Anemia complicating childbirth; D50.9 Iron deficiency anemia, unspecified; Z79.899 Other long term (current) drug therapy
CPT/HCPCS: 36415; 80053; 80307; 81001; 82570; 83615; 84156; 84550; 85025; 85027; 86592; 86695; 86696; 86850; 86900; 86901; J2590; J3490